=== PATIENT | male | born 1970 | race African-American/Black ===

== ENCOUNTER 2022-12-31 20:04 | Emergency (ER) | payer SELFPAY ==
[2022-12-31] MEDS ORDERED: CEFAZOLIN 2 GM VIAL ONE (20:48)
[2022-12-31] MEDS ORDERED: Boostrix 0.5 ML (Tdap) VIAL (>/=7 yrs of age) ONE (20:48)
[2022-12-31] MEDS ORDERED: Lidocaine 1% PF 5 ML VIAL ONE (20:48)
[2022-12-31] MEDS ORDERED: Morphine 4 MG/ML VIAL ONE (20:53)
[2022-12-31] MEDS ORDERED: Ketorolac Tromethamine 30 MG/ML VIAL ONE (20:53)
== END 2022-12-31 23:15 | disposition home or self-care (01) ==
LOC: ERS 20:04
DX: S02.832A Fracture of medial orbital wall, left side, initial encounter for closed fracture (principal); S02.32XA Fracture of orbital floor, left side, initial encounter for closed fracture; S01.81XA Laceration without foreign body of other part of head, initial encounter; X58.XXXA Exposure to other specified factors, initial encounter
CPT/HCPCS: 12011; 70450; 70486; 90471; 90715; 96365; 96366; 96375; J1885; J2270

== ENCOUNTER 2023-01-05 13:16 | Emergency (ER) | payer SELFPAY | END 2023-01-05 15:28 | disposition home or self-care (01) | LOC: ERS 13:16 | DX: S05.42XD Penetrating wound of orbit with or without foreign body, left eye, subsequent encounter (principal); X58.XXXD Exposure to other specified factors, subsequent encounter ==